=== PATIENT | male | born 1975 | race Caucasian/White ===

== ENCOUNTER 2017-03-17 13:03 | Emergency (ER) | payer OTHER ==
[~2017-03-17] VITALS: Ht 180.3 cm; Wt 90.7 kg
[~2017-03-17 13:03] MED LIST: Enoxaparin Sodium SQ; Hydrocodone Bit/Acetaminophen PO; Warfarin Sodium MC
[2017-03-17 14:00] VITALS: BP 123/54
[2017-03-17] MEDS ORDERED: DIAZ5TAB PO (14:10)
[2017-03-17] MEDS ORDERED: PRED-220 PO (14:10)
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
[2017-03-17] MEDS ORDERED: MORPHINE SULFATE 5 MG/ML SYRINGE. IM ONE (14:30)
[2017-03-17] MEDS ORDERED: predniSONE 20 MG TABLET PO ONE (14:30)
== END 2017-03-17 14:30 | disposition home or self-care (01) ==
LOC: ER 13:03
DX: M54.16 Radiculopathy, lumbar region (principal)
CPT/HCPCS: 96372; 99284; J2270; J7512